=== PATIENT | female | born 1975 | race Caucasian/White ===

== ENCOUNTER → 2019-11-21 | Outpatient (CLI) | payer OTHER | LOC: RAD 16:46 | DX: G44.319 Acute post-traumatic headache, not intractable (principal); V89.2XXA Person injured in unspecified motor-vehicle accident, traffic, initial encounter ==

== ENCOUNTER → 2019-12-21 | Outpatient (CLI) | payer OTHER | LOC: MAMMO 08:25 | DX: Z12.31 Encounter for screening mammogram for malignant neoplasm of breast (principal) ==